=== PATIENT | female | born 1990 | race Caucasian/White ===

== ENCOUNTER 2018-01-19 23:38 | Emergency (ER) | payer OTHER ==
[~2018-01-19] VITALS: Ht 165.1 cm; Wt 84.4 kg
[2018-01-19] MEDS ORDERED: PRENATA CHEWAB1 EACH (23:45)
[2018-01-20] MEDS ORDERED: PYRIDIUM DS200 MG PO (04:49)
[2018-01-20] MEDS ORDERED: CEFUROXIME250 MG PO (04:49)
== END 2018-01-20 05:02 | disposition home or self-care (01) ==
LOC: ER 23:38
DX: N39.0 Urinary tract infection, site not specified (principal)

== ENCOUNTER 2018-03-15 17:15 | Outpatient (CLI) | payer OTHER ==
[~2018-03-15 17:15] MED LIST changes: -IRON18 MG PO
[2018-03-15] MEDS ORDERED: IRON18 MG PO (19:14)
== END 2018-03-16 11:10 | disposition home or self-care (01) ==
LOC: OBS/DEL 17:15
DX: O26.893 Other specified pregnancy related conditions, third trimester (principal); Z04.3 Encounter for examination and observation following other accident; O60.03 Preterm labor without delivery, third trimester; Z34.03 Encounter for supervision of normal first pregnancy, third trimester; W18.39XA Other fall on same level, initial encounter; Y93.89 Activity, other specified; Y92.89 Other specified places as the place of occurrence of the external cause; Y99.8 Other external cause status

== ENCOUNTER → 2018-03-15 | Emergency (ER) | payer OTHER ==
[~2018-03-15] MED LIST: CEFUROXIME250 MG PO; IRON18 MG PO; PRENATA CHEWAB1 EACH; PYRIDIUM DS200 MG PO
== END | disposition left against medical advice (07) ==
LOC: ER 14:45
DX: Z53.20 Procedure and treatment not carried out because of patient's decision for unspecified reasons (principal)

== ENCOUNTER 2018-04-08 15:15 | Inpatient (IN) | payer OTHER ==
[~2018-04-08] VITALS: Ht 165.1 cm; Wt 3.2 kg
[~2018-04-08 15:15] MED LIST changes: +IRON18 MG PO
== END 2018-04-29 11:23 | DRG 788 ==
LOC: LDR 04-26 04:50 → OB/GYN 04-26 04:50 → O/R 04-26 20:08 → OB/GYN 04-26 20:19
PROVIDERS: Obstetrics & Gynecology
PROC: 10907ZC Drainage of Amniotic Fluid, Therapeutic from Products of Conception, Via Natural or Artificial Opening (ICD-10-PCS; 2018-04-26)
PROC: 3E0P7VZ Introduction of Hormone into Female Reproductive, Via Natural or Artificial Opening (ICD-10-PCS; 2018-04-26)
PROC: 3E033VJ Introduction of Other Hormone into Peripheral Vein, Percutaneous Approach (ICD-10-PCS; 2018-04-26)
PROC: 4A033R1 Measurement of Arterial Saturation, Peripheral, Percutaneous Approach (ICD-10-PCS; 2018-04-26)
PROC: 4A1HXCZ Monitoring of Products of Conception, Cardiac Rate, External Approach (ICD-10-PCS; 2018-04-26)
PROC: 10D00Z1 Extraction of Products of Conception, Low, Open Approach (ICD-10-PCS; principal; 2018-04-26 17:00)
DX: O76 Abnormality in fetal heart rate and rhythm complicating labor and delivery (principal); Z3A.39 39 weeks gestation of pregnancy; Z37.0 Single live birth; Z22.330 Carrier of Group B streptococcus